=== PATIENT | female | born 1930 | race Caucasian/White ===

== ENCOUNTER 2016-08-21 18:29 | Emergency (ER) | payer MEDICARE ==
[2016-08-21 18:38] VITALS: TEMP 98.3; BMI 20.5
[2016-08-21 18:41] VITALS: BP 139/65; PULSE 61
--- NOTE | 2016-08-21 18:43 | EDPRACDOC ---
<Stacy Cardoso - Last Filed: 08/21/16 21:31> - General Information Source: Patient, Warehouse Helper Exam Limitations: Other (alzheimers) - History of Present Illness HPI: Pt with alzeheimers brought by EMS from [facility] c/o fall today, and presents with right cheek and contusion, and RLQ pain. Hx of falls. Per EMS, pt fell from standing position, no LOC, and got up and walked off. Pt is alert and responsive. Denies CP, SOB, SOLOMON, dizzyness, N/V, vision changes. But also denies fall. Has no complaints other than right cheek tenderness, RLQ pain. Unconfirmed if fall was witnessed, mechanical. Med hx unknown. Pain Severity: Reports: Mild Injuries/Pain Location: Reports: face (right cheek) Reason for Fall: Reports: unknown Loss of Consciousness: no loss of consciousness Associated Symptoms (Fall): Reports: abdominal pain <Emmanuel Olson - Last Filed: 08/22/16 05:15> - General Stated Complaint: FALL - History of Present Illness Allergies/Adverse Reactions: Allergies codeine Allergy (Verified 04/10/16 11:56) Unknown meperidine HCl [From Demerol] Allergy (Verified 04/10/16 11:56) Unknown paregoric Allergy (Verified 04/10/16 11:56) Unknown Home Medications: Ambulatory Orders Aspirin [Ecotrin] 81 mg PO DAILY 09/16/15 Atorvastatin Calcium [Lipitor] 20 mg PO QHS 09/16/15 Calcium Carbonate + Vitamin D [Oscal with Vitamin D] 500 mg PO BID 09/16/15 Cholecalciferol (Vitamin D3) [Vitamin D-3] 2,000 unit PO DAILY 09/16/15 Citalopram (anti-depressant) [Celexa] 20 mg PO HS 09/16/15 Donepezil HCl 5 mg PO QHS 09/16/15 Insulin Detemir [Levemir] 9 unit SQ BID 09/16/15 Lorazepam [Ativan] 1 mg PO QHS PRN 09/16/15 Multivitamins with Iron [Daily Elena with Iron] 1 tab PO DAILY 09/16/15 Bicknell-3 Fatty Acids/Fish Oil [Fish Oil 1,000 mg Capsule] 1 cap PO BID 09/16/15 Phosp Acid/Dextrose/Fructose [Emetrol Oral Solution] 30 ml PO .[id number] PRN 09/16/15 Risperidone 0.5 mg PO .QPM 09/16/15 Linagliptin [Tradjenta] 5 mg PO DAILY 10/17/15 Acetaminophen [Mapap] 1,000 mg PO Q6H PRN 08/21/16 Dimethicone/Zinc Oxide [Sherif Protect Cream] 2 gm TOP Q2H 08/21/16 ED Past Medical History - History Reviewed Yes Nurses notes reviewed and agree except as marked - Patient Medical History Neurological History: Reports: Dementia Cardiac History: Reports: Hypertension, Hypercholesterolemia Psychological History: Denies: Depression Systemic History: Reports: Diabetes - Social Medical History Smoking Status: Current status unknown <Emmanuel Olson - Last Filed: 08/22/16 05:15> EDM Review of Systems - Review of Systems ROS Negative Except as Marked: Yes All systems reviewed and were negative except as marked Gastrointestinal: Pain (RLQ) ROS Comments: contusion to right cheek <Emmanuel Olson - Last Filed: 08/22/16 05:15> - Physical Exam Last recorded Vital Signs: Last Vital Signs Temp 98.3 F 08/21/16 18:30 Pulse 61 08/21/16 18:38 Resp 16 08/21/16 18:38 BP 139/65 08/21/16 18:38 Pulse Ox 95 08/21/16 18:38 Oxygen Pulse Oxygen Saturation 95 O2 Device Oxygen Flow Rate Fraction of Inspired Oxygen ( FIO2) <Stacy Cardoso - Last Filed: 08/21/16 21:31> - Physical Exam Constitutional: No apparent distress, Alert Oriented to: Person Last recorded Vital Signs: Oxygen Pulse Oxygen Saturation O2 Device Oxygen Flow Rate Fraction of Inspired Oxygen ( FIO2) - HEENT Head: Abrasion, Swelling (right cheek), Tender Eye Exam: Normal Oropharynx: Normal Tympanic Membrane: Normal ENT EAC: Normal TMJ: Normal Nose: No Symptoms Reported Neck: Normal - Respiratory/Cardiovascular Respiratory: Normal - CTA Cardiovascular: Normal - GI Tenderness: Mild, RLQ - Musculoskeletal Back: Normal Extremities: Normal - Integumentary Skin: Normal - Neurologic Motor Function: Normal Cranial Nerve: Normal Cerebellar: Normal Mood Description: Normal <Emmanuel Olson - Last Filed: 08/22/16 05:15> ED Injury/Fall Exam - Physical Exam Head Injury: contusions (rigth cheek), swelling, tenderness Extremity Exam: no evidence of injury Skin: Normal - Jayme Coma Score Best Eye Response ([place]): (4) open spontaneously Best Verbal Response ([place]): (5) oriented Best Motor Response ([place]): (6) obeys commands [place] Total: 15 <Emmanuel Olson - Last Filed: 08/22/16 05:15> - Results 08/21/16 18:33 08/21/16 18:33 WBC 8.4 xk/uL (3.8-10.8) 08/21/16 18:33 RBC 3.94 xM/uL (4.20-5.40) L 08/21/16 18:33 Hgb 12.8 g/dL (12.0-16.0) 08/21/16 18:33 Hct 37.5 % (36-47) 08/21/16 18:33 MCV 95 fL (81-99) 08/21/16 18:33 MCH 32.4 pg (27-32) H 08/21/16 18:33 MCHC 34.0 g/dl (33-36) 08/21/16 18:33 RDW 13.3 % (11.5-14.5) 08/21/16 18:33 Plt Count 250 xk/uL (130-400) 08/21/16 18:33 MPV 7.6 fL (7.4-10.4) 08/21/16 18:33 Neut % (Auto) 59.1 % (45-76) 08/21/16 18:33 Lymph % (Auto) 26.8 % (17-44) 08/21/16 18:33 Mccreary % (Auto) 12.1 % (3-10) H 08/21/16 18:33 Eos % (Auto) 1.0 % (0-5) 08/21/16 18:33 Baso % (Auto) 1.0 % (0-2) 08/21/16 18:33 Absolute Neuts (auto) 4.96 xk/uL (1.7-8.2) 08/21/16 18:33 Absolute Lymphs (auto) 2.18 xk/uL (0.65-4.75) 08/21/16 18:33 PT 10.7 SEC (9.2-11.2) 08/21/16 18:33 INR 1.0 08/21/16 18:33 APTT 19.5 SEC (22-35) L 08/21/16 18:33 Sodium 140 mEq/L (137-146) 08/21/16 18:33 Potassium 3.9 mEq/L (3.5-5.1) 08/21/16 18:33 Chloride 101 mEq/L (98-107) 08/21/16 18:33 Carbon Dioxide 30 mMOL/L (22-33) 08/21/16 18:33 Anion Gap 13 mEq/L (8-16) 08/21/16 18:33 BUN 14 MG/DL (7-17) 08/21/16 18:33 Creatinine 1.10 MG/DL (0.52-1.04) H 08/21/16 18:33 Estimated GFR (MDRD) 47 mL/min (>=60) L 08/21/16 18:33 Glucose 115 mg/dL (70-99) H 08/21/16 18:33 Calculated Osmolality 271 MOs/Kg (270-290) 08/21/16 18:33 Calcium 10.1 MG/DL (8.4-10.2) 08/21/16 18:33 Total Bilirubin 0.5 MG/DL (0.2-1.3) 08/21/16 18:33 AST 24 IU/L (14-36) 08/21/16 18:33 ALT 32 IU/L (9-52) 08/21/16 18:33 Alkaline Phosphatase 44 IU/L (55-165) L 08/21/16 18:33 Troponin I 0.06 ng/mL (<.04) 08/21/16 18:33 Bhz-C-Xglngqgfobe Pept 178 pg/mL (0-1800) 08/21/16 18:33 Total Protein 7.3 G/DL (6.3-8.2) 08/21/16 18:33 Albumin 4.1 G/DL (3.5-5.0) 08/21/16 18:33 Urine Color Yellow 08/21/16 20:37 Urine Clarity Cldy 08/21/16 20:37 Urine pH 8.0 (5.0-8.0) 08/21/16 20:37 Ur Specific [place] 1.005 (1.003-1.035) 08/21/16 20:37 Urine Protein Neg (NEG/TRACE) 08/21/16 20:37 Urine Glucose (UA) Neg (NEGATIVE) 08/21/16 20:37 Urine Ketones Neg (NEGATIVE) 08/21/16 20:37 Urine Occult Blood Neg (NEG/TRACE) 08/21/16 20:37 Urine Nitrite Neg (NEGATIVE) 08/21/16 20:37 Urine Bilirubin Neg (NEGATIVE) 08/21/16 20:37 Urine Urobilinogen <2.0 MG/DL (0-1) 08/21/16 20:37 Ur Leukocyte Esterase 2+ (NEGATIVE) H 08/21/16 20:37 Urine RBC 2-5 (0-5) 08/21/16 20:37 Urine WBC Tntc (0-5) H 08/21/16 20:37 Urine WBC Clumps Present (NONE) H 08/21/16 20:37 Ur Epithelial Cells 1+ 08/21/16 20:37 Calcium Oxalate Crystal Occ 08/21/16 20:37 Urine Bacteria Few (NEG/FEW) 08/21/16 20:37 Lab Results 08/21/16 08/21/16 08/21/16 20:37 18:33 18:33 WBC 8.4 RBC 3.94 L Hgb 12.8 Hct 37.5 MCV 95 MCH 32.4 H MCHC 34.0 RDW 13.3 Plt Count 250 MPV 7.6 Neut % (Auto) 59.1 Lymph % (Auto) 26.8 Mccreary % (Auto) 12.1 H Eos % (Auto) 1.0 Baso % (Auto) 1.0 Absolute Neuts (auto) 4.96 Absolute Lymphs (auto) 2.18 PT 10.7 INR 1.0 APTT 19.5 L Sodium Potassium Chloride Carbon Dioxide Anion Gap BUN Creatinine Estimated GFR (MDRD) Glucose Calculated Osmolality Calcium Total Bilirubin AST ALT Alkaline Phosphatase Troponin I Avp-K-Eexbhqdhouj Pept Total Protein Albumin Urine Color Yellow Urine Clarity Cldy Urine pH 8.0 Ur Specific [place] 1.005 Urine Protein Neg Urine Glucose (UA) Neg Urine Ketones Neg Urine Occult Blood Neg Urine Nitrite Neg Urine Bilirubin Neg Urine Urobilinogen <2.0 Ur Leukocyte Esterase 2+ H Urine RBC 2-5 Urine WBC Tntc H Urine WBC Clumps Present H Ur Epithelial Cells 1+ Calcium Oxalate Crystal Occ Urine Bacteria Few 08/21/16 18:33 WBC RBC Hgb Hct MCV MCH MCHC RDW Plt Count MPV Neut % (Auto) Lymph % (Auto) Mccreary % (Auto) Eos % (Auto) Baso % (Auto) Absolute Neuts (auto) Absolute Lymphs (auto) PT INR APTT Sodium 140 Potassium 3.9 Chloride 101 Carbon Dioxide 30 Anion Gap 13 BUN 14 Creatinine 1.10 H Estimated GFR (MDRD) 47 L Glucose 115 H Calculated Osmolality 271 Calcium 10.1 Total Bilirubin 0.5 AST 24 ALT 32 Alkaline Phosphatase 44 L Troponin I 0.06 Edt-D-Crkohodiikc Pept 178 Total Protein 7.3 Albumin 4.1 Urine Color Urine Clarity Urine pH Ur Specific [place] Urine Protein Urine Glucose (UA) Urine Ketones Urine Occult Blood Urine Nitrite Urine Bilirubin Urine Urobilinogen Ur Leukocyte Esterase Urine RBC Urine WBC Urine WBC Clumps Ur Epithelial Cells Calcium Oxalate Crystal Urine Bacteria <Stacy Cardoso N - Last Filed: 08/21/16 21:31> - Re-evaluation Re-evaluation 1 Re-evaluation Time: 19:45 (pt able to ambulate per baseline per sons who are present. No complaints. ) - Results 08/21/16 18:33 08/21/16 18:33 - EKG EKG #1 EKG Time: 18:35 -: Yes EKG interpreted by me Rate: bpm: 60 Rhythm: NSR ST: Normal Comparison: 09/16/15 (sinus kike) - Diagnostic Imaging Chest Image interpreted by: Radiologist EXAM: CHEST 2 VIEW COMPARISON: Radiograph dated 04/10/2016 FINDINGS: Two views of the chest demonstrate emphysematous changes of the lungs. There is no focal consolidation, pleural effusion, or pneumothorax. The cardiac silhouette is within normal limits. There is osteopenia with degenerative changes of the spine. There are elevation of the humeral heads bilaterally compatible with chronic rotator cuff injury. No acute osseous pathology. IMPRESSION: No active cardiopulmonary disease. Electronically Signed By: Mina Meyers M.D. On: 08/21/2016 19:00 Head Image interpreted by: Radiologist EXAM: CT HEAD WITHOUT CONTRAST CT MAXILLOFACIAL WITHOUT CONTRAST TECHNIQUE: Multidetector CT imaging of the head and maxillofacial structures were performed using the standard protocol without intravenous contrast. Multiplanar CT image reconstructions of the maxillofacial structures were also generated. COMPARISON: 01/22/2016. FINDINGS: CT HEAD FINDINGS No evidence for acute infarction, hemorrhage, mass lesion, hydrocephalus, or extra-axial fluid. Generalized atrophy. Chronic microvascular ischemic change. Vascular calcification. Moderate hyperostosis but no skull fracture. No scalp hematoma. No significant middle ear or mastoid fluid. Compared with 2016, similar appearance. CT MAXILLOFACIAL FINDINGS RIGHT facial hematoma, infraorbital, anterior to the maxillary sinus. Slight RIGHT nasal bone deformity could represent an acute fracture but there are no other facial bone deformities observed. No blowout fracture. No orbital hematoma. Both globes are intact. Chronic RIGHT maxillary sinusitis but no sinus air-fluid level. Extensive dental prostheses. BILATERAL cataract extraction. Cervical spondylosis. IMPRESSION: Atrophy and small vessel disease. No acute intracranial findings. RIGHT facial hematoma, infraorbital. Slight RIGHT nasal bone deformity could represent an acute fracture, but there are no significant facial injuries. No orbital hematoma. BILATERAL cataract extraction. Electronically Signed By: Leo Dallas M.D. On: 08/21/2016 20:25 Abdomen Image interpreted by: Radiologist EXAM: CT ABDOMEN AND PELVIS WITH CONTRAST TECHNIQUE: Multidetector CT imaging of the abdomen and pelvis was performed using the standard protocol following bolus administration of intravenous contrast. CONTRAST: 80 cc Isovue 370 COMPARISON: None FINDINGS: Lung bases are clear. No pleural or pericardial fluid. The liver has a normal appearance without focal lesions or ductal dilatation. No sign of injury. No calcified gallstones. The spleen is normal except for a few insignificant granuloma is. The pancreas contains a multi-septated cystic mass of the incident process measuring 4.2 cm in diameter. The adrenal glands are normal. The right kidney is normal except for a 2 cm cyst in the lower pole. The left kidney is normal except for 2 1 cm cysts in the midportion. The aorta and its branches vessels show atherosclerosis but there is no aneurysm. The IVC is normal. No retroperitoneal mass or lymphadenopathy. No free intraperitoneal fluid or air. No acute bowel pathology is seen. Bladder, prostate gland and seminal vesicles are normal. Ordinary degenerative changes affect the lumbar spine. No rib fracture, spinal fracture or pelvic fractures seen. IMPRESSION: No acute or traumatic finding. No cause of right lower quadrant pain is identified. Approximately 4.2 cm in diameter septated cystic mass of the uncinate process of the pancreas. 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 Because of the patient's age and the lesion size, I think there should be discussion whether this lesion should be followed, imaged further with MRI or even resected. Electronically Signed By: Dominick Gilmore M.D. 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 Education/Counseling Given Regarding: Diagnosis, Treatment, Prognosis <Cardoso,Stacy Reardon - Last Filed: 08/21/16 21:31> Decision Time to Discharge: 21:33 - Departure Disposition: Home <Emmanuel Olson - Last Filed: 08/22/16 05:15> - Departure Condition: Stable Final Diagnosis: Pancreatic mass Fall with injury Qualifiers: Encounter type: initial encounter Qualified Code(s): W19.XXXA - Unspecified fall, initial encounter Facial contusion Qualifiers: Encounter type: initial encounter Qualified Code(s): S00.83XA - Contusion of other part of head, initial encounter Nasal bone fracture Qualifiers: Encounter type: initial encounter Fracture type: closed Qualified Code(s): S02.2XXA - Fracture of nasal bones, initial encounter for closed fracture Instructions: RICE Therapy (ED) Referrals: Moni Medeiros MD [Primary Care Provider] - One Week Prescriptions: No Action Phosp Acid/Dextrose/Fructose [Emetrol Oral Solution] 30 ml PO .[id number] PRN PRN Reason: Nausea Risperidone 0.5 mg PO .QPM Bicknell-3 Fatty Acids/Fish Oil [Fish Oil 1,000 mg Capsule] 1 cap PO BID Insulin Detemir [Levemir] 9 unit SQ BID Cholecalciferol (Vitamin D3) [Vitamin D-3] 2,000 unit PO DAILY Calcium Carbonate + Vitamin D [Oscal with Vitamin D] 500 mg PO BID Multivitamins with Iron [Daily Elena with Iron] 1 tab PO DAILY Donepezil HCl 5 mg PO QHS Citalopram (anti-depressant) [Celexa] 20 mg PO HS Atorvastatin Calcium [Lipitor] 20 mg PO QHS Aspirin [Ecotrin] 81 mg PO DAILY Lorazepam [Ativan] 1 mg PO QHS PRN PRN Reason: Anxiety Linagliptin [Tradjenta] 5 mg PO DAILY Dimethicone/Zinc Oxide [Sherif Protect Cream] 2 gm TOP Q2H Acetaminophen [Mapap] 1,000 mg PO Q6H PRN PRN Reason: Headache Additional Instructions: YOUR RADIOGRAPHIC STUDIES (CT Scan)SHOWED AN ABNORMALITY (PANCREATIC MASS). IT IS TOO EARLY OR TOO SMALL TO DETERMINE EXACTLY WHAT IT IS. YOU WILL NEED TO FOLLOW-UP WITH YOUR PRIMARY CARE DOCTOR IN THE NEXT COUPLE OF WEEKS TO HAVE THIS CHEEKED (TO MAKE SURE IT IS NOT EARLY CANCER).
[2016-08-21 18:52] LABS: AUTOMATED LYMPH 26.8 % (17-44); AUTOMATED MONOCYTE 12.1 % (3-10); AUTOMATED NEUTROPHIL 59.1 % (45-76); MPV 7.6 fL (7.4-10.4)
[2016-08-21] MEDS ORDERED: Pharmacy Review for Metformin - IV Contrast Given SCH (19:00)
[2016-08-21 19:02] LABS: PARTIAL THROMB. TIME 19.5 SEC (22-35)
--- NOTE | 2016-08-21 19:03 | DIRPT ---
CLINICAL DATA: 85-year-old female with shortness of breath EXAM: CHEST 2 VIEW COMPARISON: Radiograph dated 04/10/2016 FINDINGS: Two views of the chest demonstrate emphysematous changes of the lungs. There is no focal consolidation, pleural effusion, or pneumothorax. The cardiac silhouette is within normal limits. There is osteopenia with degenerative changes of the spine. There are elevation of the humeral heads bilaterally compatible with chronic rotator cuff injury. No acute osseous pathology. IMPRESSION: No active cardiopulmonary disease. Electronically Signed By: Mina Meyers M.D. On: 08/21/2016 19:00
[2016-08-21 19:11] LABS: BLOOD UREA NITROGEN 14 MG/DL (7-17); CALCIUM 10.1 MG/DL (8.4-10.2); CALCULATED OSMOLALITY 271 MOs/Kg (270-290); CHLORIDE 101 mEq/L (98-107); GLUCOSE 115 mg/dL (70-99); SODIUM LEVEL 140 mEq/L (137-146); TOTAL PROTEIN 7.3 G/DL (6.3-8.2)
--- NOTE | 2016-08-21 20:28 | DIRPT ---
CLINICAL DATA: Patient fell earlier today. Facial abrasion. EXAM: CT HEAD WITHOUT CONTRAST CT MAXILLOFACIAL WITHOUT CONTRAST TECHNIQUE: Multidetector CT imaging of the head and maxillofacial structures were performed using the standard protocol without intravenous contrast. Multiplanar CT image reconstructions of the maxillofacial structures were also generated. COMPARISON: 01/22/2016. FINDINGS: CT HEAD FINDINGS No evidence for acute infarction, hemorrhage, mass lesion, hydrocephalus, or extra-axial fluid. Generalized atrophy. Chronic microvascular ischemic change. Vascular calcification. Moderate hyperostosis but no skull fracture. No scalp hematoma. No significant middle ear or mastoid fluid. Compared with 2016, similar appearance. CT MAXILLOFACIAL FINDINGS RIGHT facial hematoma, infraorbital, anterior to the maxillary sinus. Slight RIGHT nasal bone deformity could represent an acute fracture but there are no other facial bone deformities observed. No blowout fracture. No orbital hematoma. Both globes are intact. Chronic RIGHT maxillary sinusitis but no sinus air-fluid level. Extensive dental prostheses. BILATERAL cataract extraction. Cervical spondylosis. IMPRESSION: Atrophy and small vessel disease. No acute intracranial findings. RIGHT facial hematoma, infraorbital. Slight RIGHT nasal bone deformity could represent an acute fracture, but there are no significant facial injuries. No orbital hematoma. BILATERAL cataract extraction. Electronically Signed By: Leo Dallas M.D. On: 08/21/2016 20:25
--- NOTE | 2016-08-21 20:56 | DIRPT ---
CLINICAL DATA: Fell earlier today, landing on the carpeted floor. Right-sided abdominal pain. EXAM: CT ABDOMEN AND PELVIS WITH CONTRAST TECHNIQUE: Multidetector CT imaging of the abdomen and pelvis was performed using the standard protocol following bolus administration of intravenous contrast. CONTRAST: 80 cc Isovue 370 COMPARISON: None FINDINGS: Lung bases are clear. No pleural or pericardial fluid. The liver has a normal appearance without focal lesions or ductal dilatation. No sign of injury. No calcified gallstones. The spleen is normal except for a few insignificant granuloma is. The pancreas contains a multi-septated cystic mass of the incident process measuring 4.2 cm in diameter. The adrenal glands are normal. The right kidney is normal except for a 2 cm cyst in the lower pole. The left kidney is normal except for 2 1 cm cysts in the midportion. The aorta and its branches vessels show atherosclerosis but there is no aneurysm. The IVC is normal. No retroperitoneal mass or lymphadenopathy. No free intraperitoneal fluid or air. No acute bowel pathology is seen. Bladder, prostate gland and seminal vesicles are normal. Ordinary degenerative changes affect the lumbar spine. No rib fracture, spinal fracture or pelvic fractures seen. IMPRESSION: No acute or traumatic finding. No cause of right lower quadrant pain is identified. Approximately 4.2 cm in diameter septated cystic mass of the uncinate process of the pancreas. 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 Because of the patient's age and the lesion size, I think there should be discussion whether this lesion should be followed, imaged further with MRI or even resected. Electronically Signed By: Dominick Gilmore M.D. On: 08/21/2016 20:53
[2016-08-21 21:06] LABS: CA OXALATE OCC; LEUKOCYTES/URINE 2+ (NEGATIVE); NITRITE/URINE NEG (NEGATIVE); URINE OCCULT BLOOD NEG (NEG/TRACE); WBC/URINE TNTC (0-5)
== END 2016-08-21 22:06 ==
LOC: ED 18:29
DX: K86.89 Other specified diseases of pancreas (principal); S00.83XA Contusion of other part of head, initial encounter; S02.2XXA Fracture of nasal bones, initial encounter for closed fracture; W18.30XA Fall on same level, unspecified, initial encounter; Y93.9 Activity, unspecified; Y92.129 Unspecified place in nursing home as the place of occurrence of the external cause
CPT/HCPCS: 36415; 70450; 70486; 71020; 74177; 80053; 81001; 83880; 84484; 85025; 85610; 85730; 93005; 99283; A9698